=== PATIENT | female | born 1970 | race Caucasian/White ===

== ENCOUNTER 2016-08-24 17:19 | Emergency (ER) | payer OTHER ==
--- NOTE | 2016-08-24 18:53 | ED ORDER SUMMARY ---
..... Patient: JAD MCCALL OrderSheet [facility] VisitID: [id number] [address] [place] [address] 46y, F Registration Date/Time: 08/24/2016 ORDER SHEET Weight: 75.7 kg (stated) Allergies: None GENERAL ORDERS: Knee 4V Right Urgent (17:34 08/24/2016 EKoroleramón P.A.-C) (Ack 17:36 TBergley) (18:53 KPatejas-Clintonn R.N.) Foot 3V Left Urgent (17:34 08/24/2016 EKoroleva P.A.-C) (Ack 17:36 TBergley) (18:53 KPatejas-Theodorechan R.N.) MEDICATION ORDERS: Motrin PO 800 mg (NOW) (18:09 08/24/2016 EKisidoro P.A.-C) (Ack 18:10 SRoberts R.N.) (18:14 SRoberts R.N.) IV FLUIDS: ORDER SHEET NOTES: [Electronically signed by Marion Vasquez R.N. (19:01 08/24/2016)] [Electronically signed by Soumya LongoANaeem-C (19:24 08/24/2016)] [Electronically locked/signed by Marion Vasquez R.N. (19:01 08/24/2016)]
--- NOTE | 2016-08-24 18:53 | ED NURSING NOTES ---
Clinical Report - Nurses [facility] [address] [place] [address] 08/24/2016 17:23 Patient: JAD MCCALL TRIAGE Triage time 17:28 Aug 24 2016. Chief Complaint: RIGHT LOWER EXTREMITY PAIN. Location of symptoms- right knee (pt tripped on curb last night landing on knees and hands, c/o pain to right knee). Alert. No acute distress. SEPSIS SCREEN: Sepsis Screen. Negative (no infection suspected/documented). EKATERINA COMA SCORE: [place] Coma Scale: 15- eyes open spontaneously (4); best verbal response- oriented x 4 (5); best motor response- obeys commands (6). --17:34 Marion Vasquez R.N. 17:28 08/24/16. BP: 130/66 taken while sitting. HR: 87. RR: 17. O2 saturation: 97%. Temp: 98.3 F. Pain level now: 11/27. --17:34 Marion Vasquez R.N. Weight: 75.7 kg stated. Height/Length: 63 inches Per Patient. BMI: 29.6. --17:30 Marion Vasquez R.N. Medications None. --17:29 Marion Vasquez R.N. Allergies None. --17:29 Marion Vasquez R.N. History Arrived by private vehicle. Historian: patient. 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 PAST MEDICAL HX: Tetanus status: up-to-date. Immunizations: up-to-date. The patient has had a hysterectomy. SOCIAL HX: Light tobacco smoker (cigarette)- less than 1/2 a pack per day. No alcohol use or drug use. No infectious disease exposure. ABUSE ASSESSMENT: No report of abuse. SELF HARM ASSESSMENT: A self harm assessment was performed. The patient answered "no" to the question "Have you recently felt down, depressed, or hopeless?", "Have you noticed less interest or pleasure in doing things?", "Do you have thoughts of harming or killing yourself?", "Are you here because you tried to hurt yourself?", "Have you ever tried to hurt yourself before today?", "Have you recently had thoughts about harming or killing others?" and "Do you have any dangerous items in your possession?". FALL RISK ASSESSMENT: Fall risk assessment completed. No fall risk identified. NUTRITIONAL RISK ASSESSMENT: The nutritional risk assessment revealed no deficiencies. FUNCTIONAL ASSESSMENT: Functional assessment: no impairments noted. LEARNING NEEDS ASSESSMENT: The learning needs assessment revealed no barriers. SKIN INTEGRITY ASSESSMENT: Skin integrity risk assessment completed. No skin integrity risk identified. --17:34 Marion Vasquez R.N. PROBLEMS: Dental Caries. Dental Pain. Depression. --17:29 Marion Vasquez R.N. ADDITIONAL SURGERIES: Cholecystectomy. Hysterectomy. --17:29 Marion Vasquez R.N. Interventions ID band on patient. --17:34 Marion Vasquez R.N. PHYSICAL ASSESSMENT Ambulatory to room. Patient gowned. GENERAL / NEURO / PSYCH: Oriented X 4. Alert. Appears in pain. EXTREMITIES: Extremity pulses are within normal limits. Neuro-vascular status intact to the extremity. Normal gait. Right knee: tenderness and small abrasion. SKIN: Skin intact. Skin is warm and dry. --17:35 Marion Vasquez R.N. NURSING PROGRESS NOTES Reassurance given. Patient identifiers checked. Call light placed in reach. Side rails up x 1. Bed placed in lowest position. Brakes of bed on. --17:35 Marion Vasquez R.N. 18:14 08/24/2016 Motrin PO 800 mg given. Allergies verified and confirmed 5 rights. --18:14 Marcy Chase R.N. DISPOSITION / DISCHARGE Condition at departure: improved. No learning barriers present. Discharge instructions provided and reviewed with the patient. Reviewed medication(s) information. Prescription(s) given to the patient. Work note given (note given per PA for 3 days off of work). Patient verbalized understanding. Written instructions provided in Kazakh. The patient was discharged by the physician quality assurance assistant. She was discharged home. She left the Emergency Department ambulatory and via private vehicle. ( pt ambulated to lobby with steady gait, given rx, work note ad f/u instructions). --19:00 Marion Vasquez R.N. 18:58 08/24/16. BP: 124/74. HR: 76. RR: 17. O2 saturation: 99%. Temp: 98.1 F. Pain level now: 09/27. --19:00 Marion Vasquez R.N. Locked/Released at 08/24/2016 19:01 by Marion Vasquez R.N.
--- NOTE | 2016-08-24 18:53 | ED CLINICAL REPORT ---
Clinical Report - Physicians/Mid Levels [facility] [address] [place] [address] 08/24/2016 17:23 Patient: JAD MCCALL Time Seen: 17:36 Aug 24 2016. Arrived- By private vehicle. Historian- patient. HISTORY OF PRESENT ILLNESS Chief Complaint: Injury to left foot and right knee. The injury happened last night. (patient tripped while ambulating last night, she do not see something on the ground, consequently landed on her outstretched arms as well as right knee and tripping over her sandal into her left second toe. Denies any prior injuries to the toe or the knee. Patient reports pain with a knee movement especially on the right side. Denies any previous surgery to the knee. Reports last tetanus musician less than 10 years. Denies any injury to her head or neck. Denies any current wrist pain.). REVIEW OF SYSTEMS No skin laceration. All systems otherwise negative, except as recorded above. PAST HISTORY See nurses notes. The patient has not had a prior injury to the same area. Tetanus immunization status is up-to-date. Problems: Dental Caries. Dental Pain. Depression. Additional Surgeries: Cholecystectomy. Hysterectomy. Medications: None. Allergies: None. SOCIAL HISTORY Smoker- current status unknown. ADDITIONAL NOTES The nursing notes have been reviewed. PHYSICAL EXAM Vital Signs: 08/24/2016 17:28 BP: 130/66. HR: 87. RR: 17. O2 saturation: 97%. Temp: 98.3 F. Pain level now: 8/10. Appearance: Alert. No acute distress. Head: Head atraumatic. Respiratory: No respiratory distress. Breath sounds normal. Skin: Skin intact. Skin warm. Normal skin color. Extremities: Right knee: mild tenderness and swelling and small abrasion located in the patella. Joint effusion present. No limitation in ROM. Left foot: mild tenderness and small ecchymosis of the second toe. (tender at distal left 2nd toe, no nail injury). No swelling or foreign body. Gait: Limping gait. Neuro, Vascular and Tendons: Vascular status intact. LABS, X-RAYS, AND EKG Note - Tests: (R. Knee: neg for any acute fx Left foot: neg for any acute fx Both images reviewed with DR. Cohen). PROGRESS AND PROCEDURES Course of Care: patient is here in the ER very stable, able to ambulate. No signs of acute fracture. No signs of other injuries to the wrist, head or neck. 08/24/2016 18:58 BP: 124/74. HR: 76. RR: 17. O2 saturation: 99%. Temp: 98.1 F. Pain level now: 09/27. Patient is stable. Symptoms better. Patient/family counseled. Disposition: Discharged. Condition: good. CLINICAL IMPRESSION Contusion to the right knee and left 2nd toe.No left toenail injury. INSTRUCTIONS Apply ice. Elevate affected areas above chest level. Do not work for three days. Prescription Medications: Ibuprofen 800 mg tablets: take 1 tablet orally every 8 hours for 3 days, as needed for pain. Dispense fifteen (15). No refill. Follow-up: Follow up with your doctor in three days as needed. (Electronically signed by Soumya Longo P.A.-C 08/24/2016 19:24)
--- NOTE | 2016-08-24 18:53 | ED NURSING NOTES ---
Clinical Report - Nurses [facility] [address] [place] [address] 08/24/2016 17:23 Patient: JAD MCCALL TRIAGE Triage time 17:28 Aug 24 2016. Chief Complaint: RIGHT LOWER EXTREMITY PAIN. Location of symptoms- right knee (pt tripped on curb last night landing on knees and hands, c/o pain to right knee). Alert. No acute distress. SEPSIS SCREEN: Sepsis Screen. Negative (no infection suspected/documented). EKATERINA COMA SCORE: [place] Coma Scale: 15- eyes open spontaneously (4); best verbal response- oriented x 4 (5); best motor response- obeys commands (6). --17:34 Marion Vasquez R.N. 17:28 08/24/16. BP: 130/66 taken while sitting. HR: 87. RR: 17. O2 saturation: 97%. Temp: 98.3 F. Pain level now: 11/27. --17:34 Marion Vasquez R.N. Weight: 75.7 kg stated. Height/Length: 63 inches Per Patient. BMI: 29.6. --17:30 Marion Vasquez R.N. Medications None. --17:29 Marion Vasquez R.N. Allergies None. --17:29 Marion Vasquez R.N. History Arrived by private vehicle. Historian: patient. 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 PAST MEDICAL HX: Tetanus status: up-to-date. Immunizations: up-to-date. The patient has had a hysterectomy. SOCIAL HX: Light tobacco smoker (cigarette)- less than 1/2 a pack per day. No alcohol use or drug use. No infectious disease exposure. ABUSE ASSESSMENT: No report of abuse. SELF HARM ASSESSMENT: A self harm assessment was performed. The patient answered "no" to the question "Have you recently felt down, depressed, or hopeless?", "Have you noticed less interest or pleasure in doing things?", "Do you have thoughts of harming or killing yourself?", "Are you here because you tried to hurt yourself?", "Have you ever tried to hurt yourself before today?", "Have you recently had thoughts about harming or killing others?" and "Do you have any dangerous items in your possession?". FALL RISK ASSESSMENT: Fall risk assessment completed. No fall risk identified. NUTRITIONAL RISK ASSESSMENT: The nutritional risk assessment revealed no deficiencies. FUNCTIONAL ASSESSMENT: Functional assessment: no impairments noted. LEARNING NEEDS ASSESSMENT: The learning needs assessment revealed no barriers. SKIN INTEGRITY ASSESSMENT: Skin integrity risk assessment completed. No skin integrity risk identified. --17:34 Marion Vasquez R.N. PROBLEMS: Dental Caries. Dental Pain. Depression. --17:29 Marion Vasquez R.N. ADDITIONAL SURGERIES: Cholecystectomy. Hysterectomy. --17:29 Marion Vasquez R.N. Interventions ID band on patient. --17:34 Marion Vasquez R.N. PHYSICAL ASSESSMENT Ambulatory to room. Patient gowned. GENERAL / NEURO / PSYCH: Oriented X 4. Alert. Appears in pain. EXTREMITIES: Extremity pulses are within normal limits. Neuro-vascular status intact to the extremity. Normal gait. Right knee: tenderness and small abrasion. SKIN: Skin intact. Skin is warm and dry. --17:35 Marion Vasquez R.N. NURSING PROGRESS NOTES Reassurance given. Patient identifiers checked. Call light placed in reach. Side rails up x 1. Bed placed in lowest position. Brakes of bed on. --17:35 Marion Vasquez R.N. 18:14 08/24/2016 Motrin PO 800 mg given. Allergies verified and confirmed 5 rights. --18:14 Marcy Chase R.N. DISPOSITION / DISCHARGE Condition at departure: improved. No learning barriers present. Discharge instructions provided and reviewed with the patient. Reviewed medication(s) information. Prescription(s) given to the patient. Work note given (note given per PA for 3 days off of work). Patient verbalized understanding. Written instructions provided in Kiswahili. The patient was discharged by the physician data assistant. She was discharged home. She left the Emergency Department ambulatory and via private vehicle. ( pt ambulated to lobby with steady gait, given rx, work note ad f/u instructions). --19:00 Marion Vasquez R.N. 18:58 08/24/16. BP: 124/74. HR: 76. RR: 17. O2 saturation: 99%. Temp: 98.1 F. Pain level now: 09/27. --19:00 Marion Vasquez R.N. Locked/Released at 08/24/2016 19:01 by Marion Vasquez R.N.
--- NOTE | 2016-08-24 18:53 | ED ORDER SUMMARY ---
..... Patient: JAD MCCALL OrderSheet [facility] VisitID: [id number] [address] [place] [address] 46y, F Registration Date/Time: 08/24/2016 ORDER SHEET Weight: 75.7 kg (stated) Allergies: None GENERAL ORDERS: Knee 4V Right Urgent (17:34 08/24/2016 EKoroleramón P.A.-C) (Ack 17:36 TBergley) (18:53 KPatejas-Clintonn R.N.) Foot 3V Left Urgent (17:34 08/24/2016 EKoroleva P.A.-C) (Ack 17:36 TBergley) (18:53 KPatejas-Theodorechan R.N.) MEDICATION ORDERS: Motrin PO 800 mg (NOW) (18:09 08/24/2016 EKisidoro P.A.-C) (Ack 18:10 SRoberts R.N.) (18:14 SRoberts R.N.) IV FLUIDS: ORDER SHEET NOTES: [Electronically signed by Marion Vasquez R.N. (19:01 08/24/2016)] [Electronically signed by Soumya LongoANaeem-C (19:24 08/24/2016)] [Electronically locked/signed by Marion Vasquez R.N. (19:01 08/24/2016)]
--- NOTE | 2016-08-24 19:25 | ED DISCHARGE INSTRUCTIONS ---
Patient: JAD MCCALL General Instructions [facility] VisitID: [id number] [place] [address] 46y, F Registration Date/Time: 08/24/2016 Contusion to the right knee and left 2nd toe.No left toenail injury. INSTRUCTIONS Apply ice. Elevate affected areas above chest level. Do not work for three days. Prescription Medications: Ibuprofen 800 mg tablets: take 1 tablet orally every 8 hours for 3 days, as needed for pain. Dispense fifteen (15). No refill. Follow-up: Follow up with your doctor in three days as needed. ADDITIONAL INFORMATION Contusion:Lower Extremity You have a CONTUSION of your LOWER extremity (leg, knee, ankle, foot, or toes). This causes local pain, swelling and sometimes bruising. There are no broken bones. This injury may take from a few days to a few weeks to heal. Home Care: 1) Keep your leg elevated to reduce pain and swelling. When sleeping, place a pillow under the injured leg. When sitting, support the injured leg so it is level with your waist. This is very important during the first 48 hours. 2) If CRUTCHES have been advised, do not bear full weight on the injured leg until you can do so without pain. You may return to sports when you are able to hop and run on the injured leg without pain. 3) Apply an ice pack (ice cubes in a plastic bag, wrapped in a towel) over the injured area for 20 minutes every 1-2 hours the first day for pain relief. Continue this 3-4 times a day until the pain and swelling goes away. 4) You may use acetaminophen (Tylenol) or ibuprofen (Motrin, Advil) to control pain, unless another pain medicine was prescribed. [ NOTE : If you have chronic liver or kidney disease or ever had a stomach ulcer or GI bleeding, talk with your doctor before using these medicines.] Follow Up with your doctor or this facility if you are not starting to improve within the next THREE days. [NOTE: If X-rays were taken, they will be reviewed by a radiologist. You will be notified of any new findings that may affect your care.] Get Prompt Medical Attention if any of the following occur: -- Pain or swelling increases -- Toes become cold, blue, numb or tingly -- Redness, warmth or drainage from the skin Contusion: Foot You have a CONTUSION of your foot. This causes local pain, swelling and sometimes bruising. There are no broken bones. This injury may take from a few days to a few weeks to heal. Home Care: 1) Keep your LEG elevated to reduce pain and swelling. This is very important during the first 48 hours. If walking causes pain, stay off the injured leg until you can walk without pain. 2) If CRUTCHES have been advised, do not bear full weight on the injured leg until you can do so without pain. You may return to sports when you are able to hop and run on the injured leg without pain. 3) Make an ice pack (ice cubes in a plastic bag, wrapped in a towel) and apply for 20 minutes every 1-2 hours the first day. Continue this 3-4 times a day until the swelling goes down. 4) You may use acetaminophen (Tylenol) or ibuprofen (Motrin, Advil) to control pain, unless another pain medicine was prescribed. [ NOTE : If you have chronic liver or kidney disease or ever had a stomach ulcer or GI bleeding, talk with your doctor before using these medicines.] Follow Up with your doctor or this facility if you are not starting to improve within the next THREE days. [NOTE: If X-rays were taken, they will be reviewed by a radiologist. You will be notified of any new findings that may affect your care.] Get Prompt Medical Attention if any of the following occur: -- Pain or swelling increases -- Toes become cold, blue, numb or tingly -- Redness, warmth or drainage from the skin You have been given the following additional information: Contusion, Lower Extremity Contusion, Foot Do not work for three days. (Electronically signed by Soumya Longo P.A.-C 08/24/2016 19:24)
--- NOTE | 2016-08-24 19:25 | ED MAR SUMMARY ---
..... Medication Administration Record [facility] [address] [place] [address] Patient: JAD MCCALL Visit ID: [id number] 46y, F Weight: 75.7 kg Height/Length: 63 in BMI: 29.6 ALLERGIES: None Given 18:14 08/24/2016 Marcy Chase R.N. Medication Administered: MOTRIN [PO], Dose: 800 mg PO. Medication Ordered: Motrin PO 800 mg (NOW).
--- NOTE | 2016-08-24 19:25 | ED MAR SUMMARY ---
..... Medication Administration Record [facility] [address] [place] [address] Patient: JAD MCCALL Visit ID: [id number] 46y, F Weight: 75.7 kg Height/Length: 63 in BMI: 29.6 ALLERGIES: None Given 18:14 08/24/2016 Marcy Chase R.N. Medication Administered: MOTRIN [PO], Dose: 800 mg PO. Medication Ordered: Motrin PO 800 mg (NOW).
--- NOTE | 2016-08-24 19:25 | ED MED RECONCILIATION SUMMARY ---
Patient: JAD MCCALL Medication Reconciliation Report [facility] VisitID: [id number] [address] [place] [address] 46y, F Registration Date/Time: 08/24/2016 Weight: 75.7 kg Height/Length: 63 in. BMI: 29.6 ALLERGIES: None The patient's Home Medications are listed below: NONE. The source(s) of the original Home Medication information: Not obtained. The following Medications were given to the patient in the Emergency Department: Motrin [PO] PO 800 mg, administered: 08/24/2016 6:14:00 PM The following Medications were prescribed to the patient: Ibuprofen 800 mg tablets: take 1 tablet orally every 8 hours for 3 days, as needed for pain. Dispense fifteen (15). No refill. -- Soumya Longo PChristopher
--- NOTE | 2016-08-24 19:25 | ED MED RECONCILIATION SUMMARY ---
Patient: JAD MCCALL Medication Reconciliation Report [facility] VisitID: [id number] [address] [place] [address] 46y, F Registration Date/Time: 08/24/2016 Weight: 75.7 kg Height/Length: 63 in. BMI: 29.6 ALLERGIES: None The patient's Home Medications are listed below: NONE. The source(s) of the original Home Medication information: Not obtained. The following Medications were given to the patient in the Emergency Department: Motrin [PO] PO 800 mg, administered: 08/24/2016 6:14:00 PM The following Medications were prescribed to the patient: Ibuprofen 800 mg tablets: take 1 tablet orally every 8 hours for 3 days, as needed for pain. Dispense fifteen (15). No refill. -- Soumya Longo PChristopher
--- NOTE | 2016-08-24 19:31 | DIAGNOSTIC IMAGING REPORT ---
PROCEDURE: XR KNEE 4 VIEWS - RIGHT INDICATION: TRAUMA/INJURY TECHNIQUE: Four views of the right knee. COMPARISON: None. FINDINGS: Normal mineralization. No fractures. Mild lateral compartment joint space loss without significant marginal spur formation. No visible chondrocalcinosis. No joint effusion. No suspicious soft-tissue calcification or radiodense foreign bodies. IMPRESSION: 1. Intact right knee. 2. Mild lateral compartment joint space loss.
--- NOTE | 2016-08-24 19:32 | DIAGNOSTIC IMAGING REPORT ---
PROCEDURE: XR FOOT 3 VIEWS - LEFT INDICATION: TRAUMA/INJURY TECHNIQUE: Three views of the left foot. COMPARISON: None. FINDINGS: Normal mineralization. No fractures. Moderate sized plantar calcaneal spur. Mild second proximal interphalangeal joint space loss. No suspicious soft-tissue calcification or radiodense foreign bodies. IMPRESSION: 1. No acute fracture dislocation. 2. Joint space loss at the second PIP joint.
== END 2016-08-24 18:58 | disposition home or self-care (01) ==
LOC: ED SRH 17:19
DX: S80.01XA Contusion of right knee, initial encounter (principal); S90.122A Contusion of left lesser toe(s) without damage to nail, initial encounter; W01.0XXA Fall on same level from slipping, tripping and stumbling without subsequent striking against object, initial encounter; Y93.9 Activity, unspecified; Y92.9 Unspecified place or not applicable; Y99.9 Unspecified external cause status